=== PATIENT | female | born 1975 | race African-American/Black ===

== ENCOUNTER 2020-04-10 17:59 | Emergency (ER) | payer OTHER ==
--- NOTE | 2020-04-10 18:20 | PDOC ---
Rapid Medical Evaluation Time Seen by Provider: 04/10/20 18:18 Medical Evaluation: 04/10/20 18:18 I have performed a brief in-person evaluation of this patient. CC: sent by PMD for anemia; denies all symptoms/active bleeding. Hgb-6.5 PE: No focal findings Orders: labs Patient will proceed to ED for further evaluation. Discharge Disposition - Diagnosis Anemia - Referrals - Patient Instructions - Post Discharge Activity
[2020-04-10 18:31] VITALS: BP 125/68; PULSE 103; TEMP 99.6; BMI 30.9
[2020-04-10 19:18] LABS: HCG,QUALITATIVE URINE Negative
[2020-04-10 19:29] LABS: PH,URINE 5.5 (5.0-8.0); URINE APPEARANCE CLEAR; URINE BILIRUBIN NEGATIVE (NEGATIVE); URINE COLOR YELLOW; URINE GLUCOSE (UA) NEGATIVE (NEGATIVE); URINE KETONE TRACE (NEGATIVE); URINE LEUK ESTERASE NEGATIVE (NEGATIVE); URINE NITRITE NEGATIVE (NEGATIVE); URINE PROTEIN NEGATIVE (NEGATIVE); URINE UROBILINOGEN 0.2 mg/dL (0.2-1.0)
--- NOTE | 2020-04-10 19:30 | PDOC ---
History of Present Illness - General Chief Complaint: Abnormal Lab Results (Outside) Stated Complaint: SENT BY DOC Time Seen by Provider: 04/10/20 18:18 History Source: Patient Exam Limitations: No Limitations - History of Present Illness Initial Comments: Annette Esparza is a 44F with no significant PMH, presents to ER for abnormal lab results. She reports that she saw her PCP( Jos Funes ) few days ago for her annual physical. PCP called her today to inform her of the lab results, CBC revealed 6.5 Hgb, and she was informed to admit to ER. She denies any headache, nausea, vomiting, chest pain, palpitations, lightheadedness, SOB at rest/exertion, fatigue, weakness, numbness, tingling, fever, chills, hematuria, hematochezia, melena. She denies any previous hx of liver/renal, gastric diseases. No alcohol, cigarets, Illicit drugs. LMP 3 weeks ago, normal, no changes form previous. No abnormal bleedings in between, no spotting. Normal balanced diet, no new medications, herbal products, supplements. 04/10/20 19:23 04/10/20 19:46 Past History - Travel History Traveled outside of the country in the last 30 days: No - Medical History Allergies/Adverse Reactions: Allergies Allergy/AdvReac Type Severity Reaction Status Date / Time No Known Allergies Allergy Verified 04/10/20 18:21 Home Medications: Ambulatory Orders Ferrous Gluconate [Ferate] 240 mg PO DAILY #30 tablet 04/10/20 Ferrous Gluconate [Iron] 236 mg PO DAILY #14 tablet 04/10/20 - Reproductive History Is Patient Now?: No - Psycho-Social/Smoking History Smoking History: Never smoked Have you smoked in the past 12 months: No Information on smoking cessation initiated: No - Substance Abuse Hx (Audit-C & DAST Scrn) How often the patient has a drink containing alcohol: Never Score: In Men: 4 or > Positive; In Women: 3 or > Positive: 0 Screen Result (Pos requires Nsg. Audit-10AR): Negative In the last yr the pt used illegal drug/Rx for NonMed reason: No Score: Yes response is considered Positive: 0 Screen Result (Positive result requires Nsg. DAST-10): Negative Review of Systems - Review of Systems Able to Perform ROS?: Yes Is the patient limited [place]ian proficient: No Constitutional: No: Chills, Diaphoresis, Fever, Loss of Appetite, Night Sweats, Weakness HEENTM: No: Blurred Vision, Double Vision, Nose Bleeding, Throat Pain, Difficulty Swallowing Respiratory: No: Cough, Orthopnea, Shortness of Breath, SOB with Exertion, SOB at Rest Cardiac (ROS): No: Chest Pain, Edema, Lightheadedness, Palpitations, Syncope ABD/GI: No: Abd. Pain w/ defecation, Constipated, Diarrhea, Difficulty Swallowing, Nausea, Poor Appetite, Rectal Bleeding, Vomiting, Abdominal cramping, Tarry Stools : No: Burning, Dysuria, Hematuria Musculoskeletal: No: Back Pain, Joint Pain, Joint Stiffness Integumentary: No: Bruising, Change in Color Neurological: No: Headache, Numbness, Tingling, Weakness, Dizziness *Physical Exam - Vital Signs Last Vital Signs Temp Pulse Resp BP Pulse Ox 99.6 F 103 H 18 125/68 100 04/10/20 18:19 04/10/20 18:19 04/10/20 18:19 04/10/20 18:19 04/10/20 18:19 - Physical Exam General Appearance: Yes: Nourished, Appropriately Dressed. No: Apparent Distress HEENT: positive: EOMI, CANDELARIO. negative: Pale Conjunctivae, Scleral Icterus (R), Scleral Icterus (L), Rhinorrhea, Lesions, Thrush Neck: positive: Supple. negative: Tender, Rigid, Lymphadenopathy (R), Lymphadenopathy (L) Respiratory/Chest: positive: Lungs Clear, Normal Breath Sounds. negative: Respiratory Distress, Rapid RR, Rales, Rhonchi Cardiovascular: positive: Regular Rhythm, S1, S2, Murmur, Tachycardia. negative: Edema, JVD Vascular Pulses: Carotid (R): 2+, Carotid (L): 2+, Dorsalis-Pedis (R): 2+, Doralis-Pedis (L): 2+ Gastrointestinal/Abdominal: positive: Normal Bowel Sounds, Soft. negative: Tender, Guarding, Tenderness, Mass Rectal Exam: positive: normal rectal tone, hemorrhoids Extremity: positive: Normal Inspection. negative: Pedal Edema, Calf Tenderness Integumentary: positive: Normal Color, Warm, Moist. 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 #Asymptomatic anemia - PCP office called her back with Hgb value of 6.5 - Asymptomatic - EKG - CBC, CMP, Folic, B12, Iron studies, LDH, PT(INR), PTT, reti count, FOBT, Haptoglobin - Iron: 25L, TIBC 565H, Ferritin 2.1L - Vut b12: 425, Folate 17 - Dispo: Labs, Transfuse <7 Hgb, Re-eval 04/10/20 19:51 Discharge - Discharge Information Problems reviewed: Yes Clinical Impression/Diagnosis: Anemia Condition: Stable Disposition: HOME - Additional Discharge Information Prescriptions: Ferrous Gluconate [Ferate] 240 mg PO DAILY #30 tablet Ferrous Gluconate [Iron] 236 mg PO DAILY #14 tablet - Follow up/Referral Referrals: Jos Camacho PA [Primary Care Provider] - - Patient Discharge Instructions Patient Printed Discharge Instructions: Iron-Deficiency Anemia, DI for Iron Deficiency Anemia-Adult Additional Instructions: - You were seen today(04/10/20) at [facility] ER for abnormal lab results from PCP. Lab results from your annual Physical with PCP showed, Hgb of 6.5. You reported that you were not experiencing any symptoms of anemia at this time: Dizziness, fatigue, SOB, palpitations, lightheadedness, or chest pain. You were clinically stable and asymptomatic in the ER. Labs revealed 7.3 Hgb, you did not meet the criteria(<7) for transfusion and you were asymptomatic, however, because your values were at borderline, we offered you a transfusion of 1 unit of PRBC. You stated that you did not want any blood products at this time and would like to go home with Iron supplements and will follow up with your Primary care physician. Labs revealed evidence for Iron deficiency anemia ( Low iron, Low ferritin, with High TIBC ), FOBT negative. - Please follow up with your PCP within the next 72 hours for repeat CBC, workup and management of Iron deficiency anemia. - You have been prescribed Iron supplements, Please take 240mg tablet, daily, Instructions as below: -Please take this medication with Food. -Take tablets or capsules with a full glass of water (8 ounces or 240 milliliters) -Do not lie down for at least 10 minutes after taking your tablet or capsule dose. -Constipation, diarrhea, stomach cramps, or upset stomach may occur. These effects are usually temporary and may disappear as your body adjusts to this medication. If any of these effects persist or worsen, contact your PCP or come to ER immediately. -Iron may cause your stools to turn black, an effect that is not harmful. - Please return to ER immediately, if you experience any Dizziness, fatigue, SOB, palpitations, lightheadedness, chest pain, falls, LOC, fever, chills, nausea, and/or vomiting. - Post Discharge Activity
[2020-04-10 19:31] LABS: ALBUMIN 3.7 g/dl (3.4-5.0); BILIRUBIN,TOTAL 0.2 mg/dL (0.2-1); BLOOD UREA NITROGEN 8.4 mg/dL (7-18); CALCIUM 9.1 mg/dL (8.5-10.1); CREATININE 0.7 mg/dL (0.55-1.3); TOT PROT 7.9 g/dl (6.4-8.2)
[2020-04-10 20:06] LABS: BASO % 0.8 % (0-2.0); EOS % 0.2 % (0-4.5); HEMATOCRIT 24.8 % (32.4-45.2); HEMOGLOBIN 7.3 GM/dL (10.7-15.3); LYMPH % 31.4 % (8-40); MCHC 29.4 g/dl (32.0-36.0); MEAN CELL VOLUME 59.4 fl (80-96); MEAN PLT VOLUME 8.8 fl (7.5-11.1); MONO % 10.8 % (3.8-10.2); NEUT % 56.8 % (42.8-82.8); PLATELET COUNT 228 K/MM3 (134-434); RBC 4.17 M/mm3 (3.60-5.2); RDW 22.1 % (11.6-15.6); RETICULOCYTES 1.99 % (0.5-1.5); WHITE BLOOD COUNT 7.4 K/mm3 (4.0-10.0)
[2020-04-10 20:19] LABS: MCH 17.5 pg (25.7-33.7)
--- NOTE | 2020-04-10 20:29 | PDOC ---
Attending Attestation - Resident Resident Name: Kong Casanova - ED Attending Attestation I have performed the following: I have examined & evaluated the patient, The case was reviewed & discussed with the resident, I agree w/resident's findings & plan - HPI HPI: 04/10/20 20:28 see resident hpi - Physicial Exam PE: 04/10/20 20:29 see resident exam - Medical Decision Making 04/10/20 20:29 Well-appearing 44-year-old female sent for anemia found on routine outpatient testing Anemia was confirmed with a hemoglobin of 7.3, initial analysis consistent with iron deficiency anemia Patient offered blood transfusion but states she prefers to be discharged on iron and will follow up with her primary care Discharge - Discharge Information Problems reviewed: Yes Clinical Impression/Diagnosis: Anemia Condition: Stable - Follow up/Referral Referrals: Jos Camacho PA [Primary Care Provider] - - Patient Discharge Instructions - Post Discharge Activity
--- NOTE | 2020-04-11 13:14 | EKG ---
Test Reason : Blood Pressure : / mmHG Vent. Rate : 080 BPM Atrial Rate : 080 BPM P-R Int : 166 ms QRS Dur : 082 ms QT Int : 352 ms P-R-T Axes : 063 055 044 degrees QTc Int : 405 ms NORMAL SINUS RHYTHM NORMAL ECG NO PREVIOUS ECGS AVAILABLE Confirmed by MD ZOIE, CARLOS ([id number]) on 04/11/2020 1:14:31 PM Referred By: Confirmed By:CARLOS LINO MD
== END 2020-04-10 21:42 | disposition home or self-care (01) ==
LOC: JER 17:59
DX: D64.9 Anemia, unspecified (principal)
CPT/HCPCS: 36415; 80053; 81003; 82272; 82607; 82728; 82746; 83010; 83540; 83550; 83615; 84703; 85025; 85045; 86850; 86900; 86901; 93005; 93010; 99284-25